=== PATIENT | female | born 1965 | race Caucasian/White ===

== ENCOUNTER 2018-06-02 13:27 | Day surgery (SDC) | payer OTHER ==
[2018-06-02] MEDS ORDERED: DIAZEPAM 5 MG TAB ONE (13:46)
[2018-06-02] MEDS ORDERED: BUPIVACAINE HCL 0.5% MPF 10 ML SOL ONE (14:02)
[2018-06-02] MEDS ORDERED: LIDOCAINE HCL 1% MPF 30 SOL ONE (14:02)
[2018-06-02] MEDS ORDERED: GLYCOPYRROLATE 0.2 MG/ML SOL ONE (14:23)
[2018-06-02] MEDS ORDERED: EPHEDRINE SULFATE 50 MG/ML SOL IV ONE (14:24)
[2018-06-02] MEDS ORDERED: MIDAZOLAM 2 MG/2 ML SOL ONE (14:27)
[2018-06-02 14:35] VITALS: O2SAT 97
[2018-06-02 14:49] VITALS: BP 100/86; PULSE 68; RESP 12; TEMP 98.4
== END 2018-06-02 15:08 | disposition home or self-care (01) | DRG 554 ==
LOC: SURG 13:27
PROVIDERS: ATTEND Nurse Anesthetist, Certified Registered
DX: M12.88 Other specific arthropathies, not elsewhere classified, other specified site (principal)
CPT/HCPCS: J2250; J7643; A9270-GY; J2001; J3490

== ENCOUNTER 2018-07-07 12:38 | Day surgery (SDC) | payer OTHER ==
[2018-07-07] MEDS: SODIUM CHLORIDE 0.9% FLUSH 10 ML SOL IV ONE ×2 (13:13→13:32)
[2018-07-07] MEDS ORDERED: LIDOCAINE HCL 1% MPF 30 SOL ONE (13:24)
[2018-07-07] MEDS ORDERED: FENTANYL 100MCG/2ML SOL ONE (13:26)
[2018-07-07] MEDS ORDERED: MIDAZOLAM 2 MG/2 ML SOL ONE (13:26)
[2018-07-07] MEDS ORDERED: GLYCOPYRROLATE 0.2 MG/ML SOL ONE (13:26)
[2018-07-07 14:05] VITALS: BP 139/77; PULSE 58; RESP 18; TEMP 97.4; O2SAT 93
== END 2018-07-07 14:31 | disposition home or self-care (01) | DRG 554 ==
LOC: SURG 12:38
PROVIDERS: ATTEND Nurse Anesthetist, Certified Registered
DX: M12.88 Other specific arthropathies, not elsewhere classified, other specified site (principal)
CPT/HCPCS: J2250; J3010; J7643; J2001